=== PATIENT | male | born 1990 | race Two or more races ===

== ENCOUNTER 2017-05-06 18:52 | Inpatient (IN) | payer MEDICAID ==
[~2017-05-06] VITALS: Ht 188 cm; Wt 93.4 kg
[2017-05-07] VITALS: BP 115/80
[2017-05-07] MEDS ORDERED: SODIUM CHLORIDE 0.9% 1,000 ML IV ONE (00:08)
[2017-05-07] MEDS ORDERED: HYDROCODONE/APAP 7.5/325MG 1 TAB TABLET PO NR (00:15)
[2017-05-07 00:47] LABS: BASOPHILS % 0.4 % (0.0-2.0); EOSINOPHILS % 1.1 % (0.0-5.0); HEMATOCRIT. 44.2 % (42.0-52.0); HEMOGLOBIN. 15.3 g/dL (14.0-18.0); LYMPHOCYTES % 39.1 % (20.0-50.0); MEAN CORPUSCULAR VOLUME 86.8 fL (80.0-94.0); MEAN PLATELET VOLUME 8.4 fl (7.4-10.4); MONOCYTES % 7.6 % (2.0-8.0); NEUTROPHILS % 51.8 % (40.0-76.0); PLATELET 175 x1000/uL (130-400); RED BLOOD CELL COUNT 5.09 mill/uL (4.7-6.1); RED CELL DISTRIBUTION WIDTH 13.5 % (11.6-14.6)
[2017-05-07 00:51] LABS: INR 1.1; PROTHROMBIN TIME 11.1 sec (9.4-11.6)
[2017-05-07 00:53] LABS: CHLORIDE 107 mEq/L (98-107)
[2017-05-07 01:03] LABS: CARBON DIOXIDE 29 mEq/L (21-32)
[2017-05-07] MEDS ORDERED: ACETAMINOPHEN 325MG TABLET PO PRN ×2 (02:15→10:15)
[2017-05-07 05:35] VITALS: BP 120/70
[2017-05-07] MEDS ORDERED: GELATIN SPONGE,ABSORBABLE SZ 100 ONE ×2 (06:54→10:33)
[2017-05-07] MEDS ORDERED: LIDOCAINE HCL 1%/EPI 1:200,000 30 ML VIAL ONE ×2 (06:54→10:33)
[2017-05-07] MEDS ORDERED: NORMAL SALINE 0.9% 10 ML SYR ONE ×2 (06:54→10:33)
[2017-05-07] MEDS ORDERED: THROMBIN (BOVINE) 5000 UNITS/VIAL TOP ONE ×4 (06:54→11:51)
[2017-05-07] MEDS ORDERED: BACITRACIN 50,000 UNITS/VIAL ONE ×2 (06:54→10:34)
[2017-05-07 08:00] VITALS: BP 122/63
[2017-05-07] MEDS ORDERED: IPRATROPIUM/ALBUTEROL 0.5-3(2.5)MG/3ML NEB INH PRN (10:15)
[2017-05-07] MEDS ORDERED: DIPHENHYDRAMINE 50MG/ML VIAL IV PRN (10:15)
[2017-05-07] MEDS ORDERED: ONDANSETRON HCL 4MG/2ML VIAL IV PRN ×3 (10:15→12:30)
[2017-05-07] MEDS ORDERED: DEXT 5%/0.45% NACL 1000ML 1,000 ML IV SCH (11:26)
[2017-05-07] MEDS ORDERED: HYDROMORPHONE HCL/PF 2MG/ML CPJ IV PRN ×2 (11:30→12:30)
[2017-05-07] MEDS ORDERED: CEFAZOLIN SODIUM 1000MG/VIAL ONE (11:36)
[2017-05-07] MEDS ORDERED: ROCURONIUM BROMIDE 10MG/ML VIAL 5ML IV ONE (11:36)
[2017-05-07] MEDS ORDERED: DEXAMETHASONE 4MG/ML 1ML VIAL ONE (11:36)
[2017-05-07] MEDS ORDERED: HYDROMORPHONE HCL/PF 2MG/ML (OR) ONE (11:36)
[2017-05-07] MEDS ORDERED: LABETALOL HCL 5MG/ML VIAL 20ML IV ONE (11:46)
[2017-05-07] MEDS ORDERED: HYDRALAZINE 20MG/ML VIAL ONE (11:48)
[2017-05-07] MEDS ORDERED: VECURONIUM BROMIDE 10 MG/VIAL IV ONE (11:51)
[2017-05-07] MEDS ORDERED: LABETALOL HCL 20MG/4ML CARPUJECT IV PRN (12:30)
[2017-05-07] MEDS ORDERED: MEPERIDINE HCL/PF 25MG/ML CPJ IV PRN (12:30)
[2017-05-07] MEDS ORDERED: GLYCOPYRROLATE 0.2 MG/ML 2ML VIAL ONE (12:34)
[2017-05-07] MEDS ORDERED: NEOSTIGMINE METHYLSULFATE 1MG/ML 10 ML VIAL ONE (12:34)
[2017-05-07] MEDS ORDERED: NALOXONE HCL 0.4 MG/ML 1ML VIAL ONE (12:54)
[2017-05-07] MEDS ORDERED: NALOXONE INJ IV PRN (13:30)
[2017-05-07] MEDS ORDERED: ONDANSETRON INJ IV PRN (13:30)
[2017-05-07] MEDS ORDERED: DIPHENHYDRAMINE INJ IV PRN (13:30)
[2017-05-07] MEDS: HYDROMORPHONE PCA 10MG/50ML IV PRN ×2 (13:57→14:13)
[2017-05-07] MEDS ORDERED: CEFAZOLIN SODIUM 1000MG/VIAL IV SCH (14:00)
[2017-05-07] MEDS: DEXT 5%/LACTATED RINGERS 1,000 ML IV SCH (20:03)
[2017-05-07] MEDS: CEFAZOLIN 1000MG PREMIX 50 ML IV SCH (21:43)
[2017-05-08] VITALS: BP 115/80
[2017-05-08 04:00] VITALS: BP 118/73
[2017-05-08 05:47] LABS: BASOPHILS % 0.1 % (0.0-2.0); EOSINOPHILS % 0.1 % (0.0-5.0); HEMATOCRIT. 41.7 % (42.0-52.0); HEMOGLOBIN. 14.4 g/dL (14.0-18.0); LYMPHOCYTES % 17.9 % (20.0-50.0); MEAN CORPUSCULAR HEMOGLOBIN 30.1 pg (28.0-32.0); MEAN CORPUSCULAR VOLUME 87.2 fL (80.0-94.0); MEAN PLATELET VOLUME 8.6 fl (7.4-10.4); MONOCYTES % 7.3 % (2.0-8.0); NEUTROPHILS % 74.6 % (40.0-76.0); PLATELET 171 x1000/uL (130-400); RED BLOOD CELL COUNT 4.78 mill/uL (4.7-6.1); RED CELL DISTRIBUTION WIDTH 13.3 % (11.6-14.6)
[2017-05-08] MEDS: CEFAZOLIN 1000MG PREMIX 50 ML IV SCH (05:53)
[2017-05-08] MEDS: DEXT 5%/LACTATED RINGERS 1,000 ML IV SCH (06:45)
[2017-05-08 06:47] LABS: CARBON DIOXIDE 28 mEq/L (21-32); CHLORIDE 104 mEq/L (98-107)
[2017-05-08 08:00] VITALS: BP 113/70
[2017-05-08] MEDS: HYDROCODONE/APAP 7.5/325MG 1 TAB TABLET PO PRN ×3 (11:35→23:38)
[2017-05-08 12:00] VITALS: BP 116/69
[2017-05-08 16:00] VITALS: BP 113/59
[2017-05-08] MEDS ORDERED: CEFAZOLIN 1000MG PREMIX 50 ML IV NR (18:30)
[2017-05-08 20:00] VITALS: BP 115/67
[2017-05-09] VITALS: BP 103/57
[2017-05-09 04:00] VITALS: BP 111/60
[2017-05-09] MEDS: HYDROCODONE/APAP 7.5/325MG 1 TAB TABLET PO PRN ×3 (07:06→22:07)
[2017-05-09] MEDS: DEXT 5%/LACTATED RINGERS 1,000 ML IV SCH (07:14)
[2017-05-09 08:00] VITALS: BP 106/61
[2017-05-09 12:00] VITALS: BP 113/65
[2017-05-09 16:00] VITALS: BP 122/59
[2017-05-09 20:00] VITALS: BP 124/74
[2017-05-09 21:00] LABS: CHLORIDE 100 mEq/L (98-107)
[2017-05-09 21:05] LABS: CARBON DIOXIDE 32 mEq/L (21-32)
[2017-05-10] VITALS: BP 110/53
[2017-05-10 04:00] VITALS: BP 110/67
[2017-05-10 08:00] VITALS: BP 105/68
[2017-05-10] MEDS: DEXT 5%/LACTATED RINGERS 1,000 ML IV SCH ×2 (08:15→17:30)
[2017-05-10] MEDS: HYDROCODONE/APAP 7.5/325MG 1 TAB TABLET PO PRN ×3 (09:19→22:17)
[2017-05-10 12:00] VITALS: BP 130/84
[2017-05-10 16:00] VITALS: BP 113/71
[2017-05-10 20:00] VITALS: BP 116/66
[2017-05-10] MEDS: CYCLOBENZAPRINE 10MG TABLET PO SCH (22:10)
[2017-05-11] VITALS: BP 149/59
[2017-05-11 04:00] VITALS: BP 133/52
[2017-05-11] MEDS: CYCLOBENZAPRINE 10MG TABLET PO SCH (05:51)
[2017-05-11 08:00] VITALS: BP 104/64
[2017-05-11] MEDS: HYDROCODONE/APAP 7.5/325MG 1 TAB TABLET PO PRN (10:54)
[2017-05-11 12:00] VITALS: BP 120/60
[2017-05-11 16:00] VITALS: BP 117/65
[2017-05-11 16:31] VITALS: BP 117/65
== END 2017-05-11 17:35 | disposition home health service (06) | DRG 310 ==
LOC: ER 20:34 → 6EST 05-07 02:11 → EDBEDREQ 05-07 02:17
PROVIDERS: ADMIT Hospitalist; ATTEND Hospitalist
PROC: 01NB0ZZ Release Lumbar Nerve, Open Approach (ICD-10-PCS; 2017-05-07)
PROC: 0SB40ZZ Excision of Lumbosacral Disc, Open Approach (ICD-10-PCS; principal; 2017-05-07 09:30)
DX: M51.17 Intervertebral disc disorders with radiculopathy, lumbosacral region (principal)
CPT/HCPCS: 36415; 71010; 72100; 72148; 80048; 80053; 85025; 85610; 87040; 88304; 88311; 93005; 96360; 97116; 97162; 97166; 97530; 99285; A4216; J0360; J0690; J1100; J1170; J2175; J2310; J2405; J2710; J3490; J7030; J7121